=== PATIENT | female | born 1945 | race Caucasian/White ===

== ENCOUNTER 2017-01-23 09:56 | Outpatient (CLI) | payer MEDICARE | END 2017-01-23 09:57 | LOC: LAB 09:56 | PROVIDERS: ATTEND Family Medicine | DX: E78.2 Mixed hyperlipidemia (principal) | CPT/HCPCS: 36415; 80061 ==

== ENCOUNTER 2017-12-05 10:05 | Outpatient (CLI) | payer MEDICARE ==
[2017-12-05 10:44] LABS: eGFR (African) > 60; eGFR (Non-African) > 60
== END 2017-12-05 10:06 ==
LOC: LAB 10:05
PROVIDERS: ATTEND Family Medicine
DX: E78.2 Mixed hyperlipidemia (principal)
CPT/HCPCS: 36415; 80053; 80061